=== PATIENT | female | born 1960 | race Caucasian/White ===

== ENCOUNTER 2020-11-15 01:56 | Emergency (ER) | payer BC, MEDICAID ==
[~2020-11-15] VITALS: Ht 157.5 cm; Wt 45.6 kg
--- NOTE | 2020-11-15 02:04 | PHYS DOC ---
Past History Past Medical History: Anemia, Anxiety, Arthritis, COPD, Fibromyalgia, Gallstones, GERD, UTI (SERGIO PRYOR MD) Smoking: Cigarettes (SERGIO PRYOR MD) General Adult EDM: Chief Complaint: MECHANICAL FALL HPI: HPI: ".. I was trying to help her get on the pot.. and she was so weak.. she fell.. she got bad back pain. .. take morphine for it.. " " She chelsea hit her head .. and Lt side of chest..." ".. I dont want to make the decision to treat her against her will.. I will call my sisters...." Patient is a 60 year old female who presents with above hx and complaints of fall. Pt. has hx chronic back and leg pain . Patient currently complaining of chest wall pain on left side and lower back. Patient is somewhat of a poor historian. Patient denies any history of fever or chills. No recent travel. No specific ill contacts. Pt. currently refusing treatment. Pt. refuses EKG, Labs or xrays. Pt. normally follows with Dr. Talbot. Daughter currently does not want to make a decision on treating or evaluating pt. against her will. It is felt pt. is does not have capacity to make decision. This was discussed with daughter and she had conference by phone with her sister. Decided to go ahead and evaluate patient against her will since it is a consensus that she lacks the capacity to make decision. This was explained to pt. She allowed nursing to draw labs. and X- ray. Pt.has past medical hx of COPD, emphysema, anemia, gallbladder disease, and chronic pain which she takes morphine. Pt. normally follow s with Dr. Talbot. (SERGIO PRYOR MD) Review of Systems: Review of Systems: Constitutional: Denies fever or chills Eyes: Denies change in visual acuity HENT: Denies nasal congestion or sore throat Respiratory: History of cough or shortness of breath Cardiovascular: Left chest wall pain . GI: History of abdominal pain, nausea,. Denies vomiting, bloody stools or diarrhea : Denies dysuria Musculoskeletal: Lower lumbar sacral back pain and lower denies leg and joint pain. Increased generalized weakness Integument: Denies rash Neurologic: Denies headache, focal weakness or sensory changes Endocrine: Denies polyuria or polydipsia Lymphatic: Denies swollen glands Psychiatric: Denies depression or anxiety (SERGIO PRYOR MD) Family History: Family History: Noncontributory to presentation (SERGIO PRYOR MD) Current Medications: Current Meds: See nursing for home meds (SERGIO PRYOR MD) Allergies: Allergies: Allergies Coded Allergies Type Severity Reaction Last Updated Verified No Known Drug Allergies 11/15/20 No (SERGIO PRYOR MD) Physical Exam: PE: Constitutional: Moderate acute distress, non-toxic appearance. [] HENT: Normocephalic, atraumatic, bilateral external ears normal, oropharynx moist, no oral exudates, nose normal. Scar middle forehead Eyes: PERRLA, EOMI, conjunctiva pale, no discharge. [] Neck: Normal range of motion, no tenderness, supple, no stridor. [] Cardiovascular: Tachycardia heart rate regular rhythm, no murmur [], PMI to left. Monitor shows a sinus tachycardia Lungs & Thorax: Bilateral breath sounds to apex on auscultation [] Abdomen: Bowel sounds decreased, soft, no tenderness, no masses, no pulsatile masses. Distended [] Skin: Warm, dry, no erythema, no rash. Poor turgor. Fingernails painted over with purple english. Pale Back: Lumbar sacral tenderness, no CVA tenderness. [] Kyphosis and scoliosis Extremities: No tenderness, no cyanosis, no clubbing, ROM intact, no edema. Arthritic changes Neurologic: Alert and oriented to name, moves extremities on request, has decreased peripheral sensory, but no new focal deficits noted per patient and daughter Psychologic: Affect anxious, judgement currently appears to be limited, mood depressed. (SERGIO PRYOR MD) EKG: EKG: My interpretation EKG shows a sinus tachycardia 111 bpm. No findings of acute STEMI but would consider this an abnormal EKG. [] (SERGIO PRYOR MD) Radiology/Procedures: Radiology/Procedures: [[address] [address] IMAGING REPORT Signed PATIENT: SRINIVASA HERRON ACCOUNT: [id number] : 1960 LOCATION: ER AGE: 60 SEX: F EXAM STATUS: REG ER ORD. PHYSICIAN: SERGIO PRYOR MD REASON: fall, hit head PROCEDURE: CT CHEST ABD PELVIS W/CONTRAST CT LUMBAR SPINE WO, CT CHEST+ABD+PELVIS W History: Trauma. Pain. Technique: CT of the chest, abdomen and pelvis were performed with intravenous contrast. Coronal and sagittal reconstructions were performed. CT lumbar spine was obtained. Coronal and sagittal reconstructions were perfo rmed. Exposure: One or more of the following individualized dose reduction techniques were utilized for this examination: 1. Automated exposure control 2. Adjustment of the mA and/or kV according to patient size 3. Use of iterative reconstruction technique. Comparison: None Findings: Chest: No aortic aneurysm, dissection or injury. Mild atheromatous plaque within the aorta. Coronary artery calcifications. Mildly enlarged mediastinal lymph nodes largest precarinal lymph node measures 1.6 x 1.1 cm. Mildly enlarged right hilar lymph nodes. Small hiatal hernia. Pulmonary emphysema. Multifocal groundglass opacities within the lower and right middle lobes most prominent within the right lower lobe. Multifocal mucus plugging with debris in the inferior bronchi. Tree-in-bud nodularity within the right lower lobe with peripheral consolidations. No pneumothorax. No pleural effusion. Abdomen and pelvis: Distended gallbladder. Mild intrahepatic ductal dilatation. Normal caliber common bile duct. The spleen, adrenal glands, and pancreas are unremarkable. Duodenal diverticulum is noted. Left parapelvic renal cysts. No hydronephrosis. No renal calculi. Large amount of stool throughout the colon. Normal appendix. No evidence of bowel obstruction. No pathologic lymphadenopathy. No ascites. Atheromatous plaque throughout the nonaneurysmal abdominal aorta and branch vessels. Bones: No pathologic osseous lesions. Lumbar spine CT: Normal vertebral body height. Multilevel Schmorl's nodes. No acute fracture. Mild degenerative disc changes. No significant canal or neuroforaminal narrowing. Impression: Chest CT: 1. Multifocal nodular and groundglass opacities most prominent within the right lower lobe with mucous plugging and debris the bronchi, concerning for aspirati on and superimposed infectious process is possible. 2. Pulmonary emphysema. Abdomen and pelvis CT: 1. No acute abdominal or pelvic pathology. 2. Distended gallbladder. Ultrasound can further evaluate if concern for right upper quadrant pain. 3. Large amount of stool throughout the colon. Lumbar spine CT: 1. No acute fracture or subluxation of the lumbar spine. Electronically signed by: Zion Lacye DO (11/15/2020 5:35 AM) [facility] DICTATED AND SIGNED BY: ZION LACEY DO DATE: 11/15/20519 CC: AJAY TALBOT MD; SERGIO PRYOR MD ~MTH0 [address] [place] [address] IMAGING REPORT Signed PATIENT: SRINIVASA HERRON ACCOUNT: [id number] : 1960 LOCATION: ER AGE: 60 SEX: F EXAM STATUS: REG ER ORD. PHYSICIAN: SERGIO PRYOR MD REASON: fall hit head PROCEDURE: CT HEAD AND CERVICAL SPINE WO CT HEAD AND C-SPINE WO History: Reason: fall hit head / Spl. Instructions: / History: . Pain Comparison: None. Technique: Noncontrast CT imaging was performed of the head and cervical spine. Coronal and sagittal reconstructions were performed. Exposure: One or more of the following individualized dose reduction techniques were utilized for this examination: 1. Automated exposure control 2. Adjustment of the mA and/or kV according to patient size 3. Use of iterative reconstruction technique. Findings: Motion degraded examination. Head CT: No intracranial hemorrhage. No mass effect. No hydrocephalus. Posterior periventricular hypoattenuation involving the parietal occipital lobe bilaterally. Imaged orbits are unremarkable. Imaged paranasal sinuses and mastoid air cells are clear. No acute calvarial fracture. Cervical spine CT: Motion degraded evaluation. Normal vertebral body alignment. Normal height. No definite fracture although evaluation is degraded due to patient motion. Multilevel degenerative disc changes most prominent C5-C6 and C6-C7. Multilevel facet arthropathy. No high-grade canal stenosis. Multilevel neuroforaminal narrowing. Chronic ununited C1 posterior arch Mild pulmonary emphysema. Impression: Head CT: 1. No acute intracranial hemorrhage. 2. Posterior periventricular hypoattenuation involving the parietal occipital lobes bilaterally, can be seen with posterior reversible encephalopathy syndrome or sequela chronic microvascular ischemia. MRI can further evaluate as clinically warranted. Cervical spine CT: 1. No definite acute fracture although evaluation is degraded due to patient motion. If persistent clinical concern, recommend follow-up. 2. Multilevel cervical spondylosis. Electronically signed by: Zion Lacey DO (11/15/2020 5:20 AM) [facility] DICTATED AND SIGNED BY: ZION LACEY DO DATE: 11/15/20511 CC: AJAY TALBOT MD; SERGIO PRYOR MD ~MTH0 0 ][place] [address] IMAGING REPORT Signed PATIENT: SRINIVASA HERRON ACCOUNT: [id number] : 1960 LOCATION: ER AGE: 60 SEX: F EXAM STATUS: REG ER ORD. PHYSICIAN: SERGIO PRYOR MD REASON: fall hit head PROCEDURE: CT HEAD AND CERVICAL SPINE WO CT HEAD AND C-SPINE WO History: Reason: fall hit head / Spl. Instructions: / History: . Pain Comparison: None. Technique: Noncontrast CT imaging was performed of the head and cervical spine. Coronal and sagittal reconstructions were performed. Exposure: One or more of the following individualized dose reduction techniques were utilized for this examination: 1. Automated exposure control 2. Adjustment of the mA and/or kV according to patient size 3. Use of iterative reconstruction technique. Findings: Motion degraded examination. Head CT: No intracranial hemorrhage. No mass effect. No hydrocephalus. Posterior periventricular hypoattenuation involving the parietal occipital lobe bilaterally. Imaged orbits are unremarkable. Imaged paranasal sinuses and mastoid air cells are clear. No acute calvarial fracture. Cervical spine CT: Motion degraded evaluation. Normal vertebral body alignment. Normal height. No definite fracture although evaluation is degraded due to patient motion. Multilevel degenerative disc changes most prominent C5-C6 and C6-C7. Multilevel facet arthropathy. No high-grade canal stenosis. Multilevel neuroforaminal narrowing. Chronic ununited C1 posterior arch Mild pulmonary emphysema. Impression: Head CT: 1. No acute intracranial hemorrhage. 2. Posterior periventricular hypoattenuation involving the parietal occipital lobes bilaterally, can be seen with posterior reversible encephalopathy syndrome or sequela chronic microvascular ischemia. MRI can further evaluate as clinically warranted. Cervical spine CT: 1. No definite acute fracture although evaluation is degraded due to patient motion. If persistent clinical concern, recommend follow-up. 2. Multilevel cervical spondylosis. Electronically signed by: Zion Lacey DO (11/15/2020 5:20 AM) [facility] DICTATED AND SIGNED BY: ZION LACEY DO DATE: 11/15/20511 CC: AJAY TALBOT MD; SERGIO PRYOR MD ~MTH0 0 (SERGIO PRYOR MD) Heart Score: HEART Score for Chest Pain: HEART Score for Chest Pain Response (Comments) Value History Moderately Suspicious 1 ECG Nonspecific Repolarizatio 1 Age >45 - < 65 1 Risk Factors 1 or 2 Risk Factors 1 Total 4 Risk Factors: Risk Factors: DM, Current or recent (<one month) smoker, HTN, HLP, family history of CAD, obesity. Risk Scores: Score 0 - 3: 2.5% MACE over next 6 weeks - Discharge Home Score 4 - 6: 20.3% MACE over next 6 weeks - Admit for Clinical Observation Score 7 - 10: 72.7% MACE over next 6 weeks - Early Invasive Strategies (SERGIO PRYOR MD) C/O Chest Pain: N/A (DOTTIE BARAJAS DO) Course & Med Decision Making: Course & Med Decision Making Pertinent Labs and Imaging studies reviewed. (See chart for details) Discussed presentation, testing and tx. plan with Dr. Buckley Transfer to [facility]- Impression: 1. Pneumonia 2. Leukocytosis 15.9 with 85 Segs 3. Altered Mental Status 4. Hypoxia 5. COPD 6. Osteoporosis 7. Elevated alk phos 130 8. Anemia Hgb 8.1 9. Hx.of Gall Bladder Dz 10. Respiratory Failure -Hypoxia [] (SERGIO PRYOR MD) Course & Med Decision Making I received signout by Dr. Parrish at shift change. Pt accepted for transfer to [facility]. RN concerned for sick presentation and slight agitation in ed - was given ativan for this prior. I reviewed labs/imaging and very thorough workup previously performed. I re-assessed pt at bedside. Concern for AMS (patient has no decision-making capacity), sepsis 2/2 pneumonia requiring oxygen. Pt now with increased agitation that required medication (haldol successful) to desecalate. Pt with no signs of septic shock. Pt was stabilized at time of transfer for higher level of care. (DOTTIE BARAJAS DO) Dragon Disclaimer: Dragon Disclaimer: This electronic medical record was generated, in whole or in part, using a voice recognition dictation system. (SERGIO PRYOR MD) Departure Departure: Impression: Primary Impression: AMS (altered mental status) Additional Impressions: Sepsis with acute hypoxic respiratory failure Agitation requiring sedation protocol Referrals: RODO DUMONT MD (PCP) SERGIO PRYOR MD Nov 15, 2020 02:04 [facility] Nov 15, 2020 19:56
[2020-11-15 03:25] LABS: BASO # 0.1 x10^3/uL (0.0-0.2); BASO % 0 % (0-3); EOS % 0 % (0-3); HEMATOCRIT 26.4 % (36.0-47.0); HEMOGLOBIN 8.1 g/dL (12.0-15.5); LYMPH # 0.5 x10^3/uL (1.0-4.8); LYMPH % 3 % (24-48); MEAN CORPUSCULAR HEMOGLOBIN 27 pg (25-35); MEAN CORPUSCULAR HGB CONC 31 g/dL (31-37); MEAN CORPUSCULAR VOLUME 88 fL (79-100); MONO # 0.9 x10^3/uL (0.0-1.1); MONO % 6 % (0-9); NEUT # 14.4 x10^3uL (1.8-7.7); NEUT % 91 % (31-73); PLATELET COUNT 673 x10^3/uL (140-400); RED CELL DISTRIBUTION WIDTH 18.9 % (11.5-14.5); WHITE BLOOD COUNT 15.9 x10^3/uL (4.0-11.0)
[2020-11-15] MEDS ORDERED: IOHEXOL 300 MG/ML 75 ML VIAL. IV ONE (03:30)
[2020-11-15] MEDS ORDERED: IV RINGERS SOLUTION,LACTATED 1,000 ML IV SCH (03:30)
[2020-11-15] MEDS ORDERED: CONTRAST GIVEN. MC PRN (03:30)
[2020-11-15 03:38] LABS: CALCIUM 8.8 mg/dL (8.5-10.1); CREATININE 0.6 mg/dL (0.6-1.0); POTASSIUM 4.4 mmol/L (3.5-5.1)
[2020-11-15 03:43] LABS: % BANDS 11 % (0-9); % LYMPHS 1 % (24-48); % MONOS 3 % (0-10); % SEGS 85 % (35-66); ANISOCYTOSIS SLIGHT; PLT ESTIMATE INCREASED (ADEQUATE)
[2020-11-15 03:45] LABS: ALBUMIN 3.1 g/dL (3.4-5.0); DIRECT BILIRUBIN 0.1 mg/dL (0.0-0.2); TOTAL BILIRUBIN 0.4 mg/dL (0.2-1.0); TOTAL PROTEIN 6.8 g/dL (6.4-8.2)
--- NOTE | 2020-11-15 04:08 | EKG ---
[address] [address] Test Date: 2020-11-15 Test Time: 03:00:49 Pat Name: SRINIVASA HERRON Department: Room: Gender: F Pipeline Operator: RJ : 1960 Requested By: SERGIO PRYOR Order Number: [id number] Reading MD: Measurements Intervals [place] Rate: 111 P: 0 ME: 138 QRS: 36 QRSD: 70 T: 3 QT: 302 QTc: 414 Interpretive Statements SINUS TACHYCARDIA LOW LIMB LEAD VOLTAGE T ABNORMALITY IN INFERIOR LEADS ABNORMAL ECG RI6.02 No previous ECG available for comparison
[2020-11-15 05:20] LABS: BILIRUBIN,URINE NEG (NEG); CLARITY,URINE CLEAR; COLOR,URINE YELLOW; GLUCOSE,URINE NEG (NEG); NITRITE,URINE NEG (NEG); UROBILINOGEN,URINE 0.2 mg/dL (0.2 mg/dL)
--- NOTE | 2020-11-15 05:23 | RAD ---
CT HEAD AND C-SPINE WO History: Reason: fall hit head / Spl. Instructions: / History: . Pain Comparison: None. Technique: Noncontrast CT imaging was performed of the head and cervical spine. Coronal and sagittal reconstructions were performed. Exposure: One or more of the following individualized dose reduction techniques were utilized for thi s examination: 1. Automated exposure control 2. Adjustment of the mA and/or kV according to patient size 3. Use of iterative reconstruction technique. Findings: Motion degraded examination. Head CT: No intracranial hemorrhage. No mass effect. No hydrocephalus. Posterior periventricular hypoattenuation involving the parietal occipital lobe bilaterally. Imaged orbits are unremarkable. Imaged paranasal sinuses and mastoid air cells are clear. No acute ca lvarial fracture. Cervical spine CT: Motion degraded evaluation. Normal vertebral body alignment. Normal height. No definite fracture although evaluation is degraded due to patient motion. Multilevel degenerative disc changes most prominent C5-C6 and C6-C7. Multilevel facet arthropathy. No high-grade canal stenosis. Multilevel neuroforaminal narrowing. Chronic ununited C1 posterior arch Mild pulmonary emphysema. Impression: Head CT: 1. No acute intracranial hemorrhage. 2. Posterior periventricular hypoattenuation involving the parietal occipital lobes bilaterally, can be seen with posterior reversible encephalopathy syndrome or sequela chronic microvascular ischemia. MRI can further evaluate as clinically warranted. Cervical spine CT: 1. No definite acute fracture although evaluation is degraded due to patient motion. If persistent c linical concern, recommend follow-up. 2. Multilevel cervical spondylosis. Electronically signed by: Zion Lacey DO (11/15/2020 5:20 AM) [facility]
[2020-11-15 05:25] LABS: BARBITURATES NEG (NEG); BENZODIAZEPINES NEG (NEG); CANNABINOIDS NEG (NEG); COCAINE NEG (NEG); METHADONE NEG (NEG); OPIATES POS (NEG); PHENCYCLIDINE NEG (NEG)
[2020-11-15 05:26] LABS: BACTERIA,URINE 0 /HPF (0-FEW); RBC,URINE 0 /HPF (0-2); SQUAMOUS EPITHELIAL CELL,UR OCC /LPF; WBC,URINE RARE /HPF (0-4)
[2020-11-15 05:28] LABS: AMPHETAMINE/METHAMPHETAMINE NEG (NEG)
--- NOTE | 2020-11-15 05:37 | RAD ---
CT LUMBAR SPINE WO, CT CHEST+ABD+PELVIS W History: Trauma. Pain. Technique: CT of the chest, abdomen and pelvis were performed with intravenous contrast. Coronal and sagittal reconstructions were performed. CT lumbar spine was obtained. Coronal and sagittal reconstructions were performed. Exposure: One or more of the following individualized dose reduction techniques were utilized for thi s examination: 1. Automated exposure control 2. Adjustment of the mA and/or kV according to patient size 3. Use of iterative reconstruction technique. Comparison: None Findings: Chest: No aortic aneurysm, dissection or injury. Mild atheromatous plaque within the aorta. Coronary artery calcifications. Mildly enlarged mediastinal lymph nodes largest precarinal lymph node measures 1.6 x 1.1 cm. Mildly enlarged right hilar lymph nodes. Small hiatal hernia. Pulmonary emphysema. Multifocal groundglass opacities within the lower and right middle lobes most pr ominent within the right lower lobe. Multifocal mucus plugging with debris in the inferior bronchi. T ree-in-bud nodularity within the right lower lobe with peripheral consolidations. No pneumothorax. No pleural effusion. Abdomen and pelvis: Distended gallbladder. Mild intrahepatic ductal dilatation. Normal caliber common bile duct. The spleen, adrenal glands, and pancreas are unremarkable. Duodenal diverticulum is noted . Left parapelvic renal cysts. No hydronephrosis. No renal calculi. Large amount of stool throughout the colon. Normal appendix. No evidence of bowel obstruction. No pat hologic lymphadenopathy. No ascites. Atheromatous plaque throughout the nonaneurysmal abdominal aorta and branch vessels. Bones: No pathologic osseous lesions. Lumbar spine CT: Normal vertebral body height. Multilevel Schmorl's nodes. No acute fracture. Mild degenerative disc changes. No significant canal or neuroforaminal narrowing. Impression: Chest CT: 1. Multifocal nodular and groundglass opacities most prominent within the right lower lobe with muco us plugging and debris the bronchi, concerning for aspiration and superimposed infectious process is possible. 2. Pulmonary emphysema. Abdomen and pelvis CT: 1. No acute abdominal or pelvic pathology. 2. Distended gallbladder. Ultrasound can further evaluate if concern for right upper quadrant pain. 3. Large amount of stool throughout the colon. Lumbar spine CT: 1. No acute fracture or subluxation of the lumbar spine. Electronically signed by: Zion Lacey DO (11/15/2020 5:35 AM) [facility]
--- NOTE | 2020-11-15 05:40 | RAD ---
XR ABDOMEN COMP ACUTE History: Reason: fall / Spl. Instructions: / History: . Pain Technique: Supine and upright views of the abdomen. Comparison: None. Findings: Patchy bibasilar opacities, right greater than left. No pneumothorax. No pleural effusion. Normal hea rt size. No pneumoperitoneum. Mild small bowel gas. Air stool throughout the colon. Large colonic stool burden. Impression: 1. Patchy bibasilar opacities, concerning for pneumonia and aspiration is possible. Recommend follow -up to ensure resolution. 2. Nonobstructed bowel gas pattern. Large colonic stool burden. Electronically signed by: Zion Lacey DO (11/15/2020 5:38 AM) [facility]
[2020-11-15] MEDS ORDERED: IV NORMAL SALINE 250ML 250 ML ONE (05:52)
[2020-11-15] MEDS ORDERED: IV NORMAL SALINE 50ML 50 ML ONE (05:52)
[2020-11-15] MEDS ORDERED: cefTRIAXone SODIUM 1 GM VIAL ONE (05:53)
[2020-11-15] MEDS ORDERED: AZITHROMYCIN 500 MG VIAL. IV ONE (05:53)
[2020-11-15] MEDS ORDERED: AZITHROMYCIN 500 MG in IV NORMAL SALINE 250ML 250 ML IV ONE (06:00)
[2020-11-15] MEDS ORDERED: HYDROmorphone PF 1 MG/ML DISP.SYRIN ONE (09:04)
[2020-11-15] MEDS ORDERED: HYDROmorphone PF 1 MG/ML DISP.SYRIN IVP ONE (09:15)
[2020-11-15] MEDS ORDERED: HALOPERIDOL LACT 5 MG/ML VIAL. IVP ONE ×2 (09:45→12:00)
[2020-11-15] MEDS ORDERED: IV NORMAL SALINE 1,000ML 1,000 ML IV ONE (09:45)
[2020-11-15] MEDS ORDERED: CLINDAMYCIN 600MG PREMIX 50 ML IV ONE (09:45)
[2020-11-15 14:41] VITALS: BP 129/53
== END 2020-11-15 14:31 | disposition short-term general hospital (02) ==
LOC: ER 01:56
DX: A41.9 Sepsis, unspecified organism (principal); R65.20 Severe sepsis without septic shock; J96.01 Acute respiratory failure with hypoxia; J18.9 Pneumonia, unspecified organism; D72.829 Elevated white blood cell count, unspecified; R41.82 Altered mental status, unspecified; J44.9 Chronic obstructive pulmonary disease, unspecified; M81.0 Age-related osteoporosis without current pathological fracture; R79.89 Other specified abnormal findings of blood chemistry; D64.9 Anemia, unspecified; R45.1 Restlessness and agitation; M79.7 Fibromyalgia; K21.9 Gastro-esophageal reflux disease without esophagitis; F17.210 Nicotine dependence, cigarettes, uncomplicated; M19.90 Unspecified osteoarthritis, unspecified site; G89.29 Other chronic pain; R07.89 Other chest pain; M54.5 Low back pain; Z20.822 Contact with and (suspected) exposure to COVID-19; Z87.440 Personal history of urinary (tract) infections; Z86.2 Personal history of diseases of the blood and blood-forming organs and certain disorders involving the immune mechanism; W18.39XA Other fall on same level, initial encounter; Y93.89 Activity, other specified; Y92.89 Other specified places as the place of occurrence of the external cause; Y99.8 Other external cause status
CPT/HCPCS: 36415; 70450; 71260; 72125; 72131; 74022; 74177; 80048; 80076; 80307; 81001; 82550; 82803; 83605; 83690; 84484; 85007; 85025; 87040; 93005; 96361; 96365; 96367; 96375; 96376; 99285; J0456; J0696; J1170; J1630; J2060; J3490; J7050; J7120; Q9967; U0003